=== PATIENT | female | born 2000 | race African-American/Black ===

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

== ENCOUNTER 2020-01-04 15:51 | Emergency (ER) | payer OTHER ==
[~2020-01-04] VITALS: Ht 144.8 cm; Wt 53.5 kg
[2020-01-04 15:58] VITALS: TEMP 98.1
[2020-01-04 18:25] VITALS: BP 118/74
== END 2020-01-04 18:25 | disposition home or self-care (01) ==
LOC: ED 15:51
DX: N76.0 Acute vaginitis (principal)
CPT/HCPCS: 81000; 99282

== ENCOUNTER 2020-03-07 21:21 | Emergency (ER) | payer OTHER ==
[~2020-03-07] VITALS: Ht 144.8 cm; Wt 53.5 kg
[2020-03-07 23:30] VITALS: BP 106/59; TEMP 98.3
== END 2020-03-07 23:30 | disposition home or self-care (01) ==
LOC: ED 21:21
DX: J06.9 Acute upper respiratory infection, unspecified (principal); Z33.1 Pregnant state, incidental
CPT/HCPCS: 87502; 87651; 99283

== ENCOUNTER 2022-04-15 09:38 | Emergency (ER) | payer OTHER ==
[~2022-04-15] VITALS: Ht 144.8 cm; Wt 49.9 kg
[2022-04-15 09:44] VITALS: BP 113/66; TEMP 99.4
[2022-04-15] MEDS ORDERED: Z-PAK PO (10:53)
== END 2022-04-15 11:15 | disposition home or self-care (01) ==
LOC: ED 09:38
DX: J02.0 Streptococcal pharyngitis (principal); U07.1 COVID-19
CPT/HCPCS: 87635; 87651; 96372; 99283; J0696; J1100; U0003

== ENCOUNTER 2022-09-21 19:04 | Emergency (ER) | payer OTHER ==
[~2022-09-21] VITALS: Ht 144.8 cm; Wt 47.2 kg
[~2022-09-21 19:04] MED LIST changes: +Z-PAK PO
[2022-09-21 20:45] VITALS: BP 114/79; TEMP 98.5
== END 2022-09-21 20:45 | disposition home or self-care (01) ==
LOC: ED 19:04
DX: N76.0 Acute vaginitis (principal); N39.0 Urinary tract infection, site not specified; R59.0 Localized enlarged lymph nodes
CPT/HCPCS: 81000; 87086; 87088; 87490; 87590; 96372; 99283; J0696